=== PATIENT | female | born 1945 | race Caucasian/White ===

== ENCOUNTER 2017-01-18 07:07 | Day surgery (SDC) | payer MEDICARE, OTHER ==
[2017-01-17 13:32] LABS: BASOPHILS 0.4 %; BASOPHILS ABSOLUTE 0.03 10/3/uL (0.0-0.16); EOSINOPHILS 2.3 %; EOSINOPHILS ABSOLUTE 0.18 10/3/uL (0.0-0.53); HEMATOCRIT 39.6 % (36.0-48.0); HEMOGLOBIN 13.4 g/dL (12.0-16.0); IMMATURE GRANULOCYTES 0.4 %; IMMATURE GRANULOCYTES ABSOLUTE 0.03 10/3/uL (0.0-0.11); LYMPHOCYTES 16.8 %; LYMPHOCYTES ABSOLUTE 1.33 10/3/uL (0.67-4.30); MEAN CORPUS HGB CONC 33.8 g/dL (32.0-36.0); MEAN CORPUSCULAR HEMOGLOB 33.2 pg (26.0-34.0); MEAN PLATELET VOLUME 9.6 fL (9.2-13.0); MONOCYTES 7.4 %; MONOCYTES ABSOLUTE 0.59 10/3/uL (0.21-1.20); NEUTROPHILS 72.7 %; NEUTROPHILS ABSOLUTE 5.76 10/3/uL (2.02-8.40); PLATELET COUNT 354 10/3/uL (150-400); RBC DISTRIBUTION WIDTH 12.7 % (12.0-16.0); RED CELL COUNT 4.04 10/6/uL (4.0-5.6); WHITE BLOOD CELLS 7.9 10/3/uL (4.5-10.5)
[2017-01-17 13:33] LABS: MANUAL DIFF NO %
[2017-01-17 14:58] LABS: A/G RATIO 1.7 (0.7-1.9); ALBUMIN 4.2 G/DL (3.5-5.0); ALKALINE PHOSPHATASE 72 U/L (45-117); BUN (BLOOD UREA NITROGEN) 21 MG/DL (6-23); CALCIUM, SERUM 9.2 MG/DL (8.5-10.4); CHLORIDE, SERUM 102 MMOL/L (96-112); CO2 (CARBON DIOXIDE) 25 MMOL/L (24-34); CREATININE 0.97 MG/DL (0.55-1.02); GFR AFRICAN AMERICAN 68 ML/MIN (>=60); GFR NON AFRICAN AMERICAN 58 ML/MIN (>=60); GLOBULIN 2.5 G/DL (2.5-4.1); GLUCOSE, SERUM 74 MG/DL (60-99); POTASSIUM, SERUM 4.6 MMOL/L (3.5-5.3); SGOT(AST) 23 U/L (5-40); SGPT(ALT) 27 U/L (5-65); SODIUM, SERUM 138 MMOL/L (135-148); TOTAL BILIRUBIN 0.7 MG/DL (0-1.2); TOTAL PROTEIN 6.7 G/DL (6.0-8.5)
--- NOTE | ~2017-01-18 | OP ---
Record Of Operation [facility] [address] [place]. [address] NAME: RAQUEL THAKUR : 43 STATUS : [facility]#: [id number] AGE: 71 ADM/REG DATE : 01/18/17 MR#: [id number] REPORT SERV DATE: 01/19/17 DICTATED BY: RALPH MENDIETA III DATE: 01/18/17 REPORT STATUS : Draft TRANSCRIBED BY: MODL DATE: 01/18/17 DATE OF PROCEDURE: 01/18/2017 PREOPERATIVE DIAGNOSIS: Invasive lobular cancer of the left breast. POSTOPERATIVE DIAGNOSIS: Invasive lobular cancer of the left breast. PROCEDURE: Left breast lumpectomy with ultrasound wire localization and sentinel lymph node biopsy. SURGEON: Ralph Mendieta M.D. ANESTHESIA: General with intubation. COMPLICATIONS: None. ESTIMATED BLOOD LOSS: 5 mL. SPECIMENS: Lumpectomy specimen from left breast and sentinel lymph node from left axilla. DRAINS: None. LAP AND SPONGE COUNT: Correct x3. BRIEF HISTORY: This 71-year-old female presented with biopsy proven invasive lobular cancer located at the 3 o'clock position in the left breast. The patient was offered the option of breast conservative therapy versus mastectomy. The pros and cons, advantages, and disadvantages of each were discussed with the patient. The patient elected to have breast conservative therapy. Therefore, felt that a left breast lumpectomy with sentinel lymph node biopsy and possible axillary dissection was indicated. This procedure, the risks, benefits, and alternatives, including, but not limited to the risk for bleeding, infection, pain, swelling, scarring or deformity to the breast, seroma formation, hematoma formation, distortion of the breast, change in size of the breast, nerve injury, chronic paresthesia or pain in the arm, shoulder or axilla, nerve injury with muscle weakness or paralysis in muscles of her back or shoulder, chronic lymphedema of the arm, possible need to return the operating room for wider excision, completion of mastectomy, or completion of axillary dissection if there were discrepancies between the frozen section and final pathology report and unforeseen complications including deep venous thrombosis, pulmonary embolus, myocardial infarction, stroke, pneumonia, and , were explained the patient prior to surgery. She understood the risks and agreed to surgery as planned. DESCRIPTION OF PROCEDURE: After being properly identified and after discussing risks of surgery with her again in the preoperative area and after lymphoscintigraphy had been performed per Radiology and after ultrasound wire localization had been performed per Radiology, the patient was taken to the operating room and placed in the supine position on operating room table. General anesthesia was administered and she was intubated without Record Of Operation [facility] [id number] [facility]. [address] NAME: RAQUEL THAKUR : 43 STATUS : [facility]#: [id number] AGE: 71 ADM/REG DATE : 01/18/17 MR#: [id number] REPORT SERV DATE: 01/19/17 DICTATED BY: RALPH MENDIETA III DATE: 01/18/17 REPORT STATUS : Draft TRANSCRIBED BY: SIMBA DATE: 01/18/17 difficulty. The left breast, arm, and axilla were prepped and draped sterilely in the usual fashion, taking care not to dislodge the guidewire from the skin. After an appropriate "time-out" per discharge standards, a curvilinear incision was made at the exit site of the guidewire from the skin at the 3 o'clock position laterally in the left breast. The incision was continued through the subcutaneous tissue. Using sharp dissection, a generous segmentectomy specimen was taken, down to the major pectoral fascia. This dissection was done so as to leave the guidewire in the center of the specimen. This entire block of tissue was thus removed and oriented with sutures and sent for specimen and imaging. It was interpreted by Radiology as containing the tumor. The specimen was then sent to pathology interpreted containing clear margins with the tumor. The wound was irrigated copiously with saline and hemostasis was assured. The subcutaneous tissue was closed with running 3-0 Vicryl suture. The skin was closed with running subcuticular 4-0 Monocryl stitch. We then turned our attention to the left axilla. A small transverse incision was made in the left axilla. Using the navigator probe, we identified a cluster of small sentinel lymph nodes. These were completely resected. The ex-vivo 10- second count of this lymph node was around 1400. The background count after removal of these lymph nodes in the axilla was 0/10 seconds. The sentinel lymph nodes were sent to pathology and interpreted as being benign with no evidence for malignancy. The area was irrigated copiously with saline. Hemostasis was assured. The subcutaneous tissue was closed with a running 3-0 Vicryl suture. The skin was closed with running subcuticular 4-0 Monocryl stitch. Both incisions were injected with 0.5% Marcaine. Dressings were applied, anesthesia was reversed, and the patient had recovery room in stable condition. She tolerated the procedure well. Her family was informed the results of surgery. The patient was discharged when stable and comfortable. Her family was advised that she should keep the wounds clean and dry for 48 hours, that she should not drive for two to three days after surgery or while using narcotics and that she should resume her usual medications. She was asked to return in two weeks for followup or sooner if any fever, chills, wound drainage, or other problems prior to that time. She was given a prescription for Percocet 7.5 one t.i.d., #12, as needed for pain, which she was advised not to use while driving. RHJ/MODL Ralph Mendieta III, M.D. / [id number] CC: Mazin Matthews III, M.D.
--- NOTE | ~2017-01-18 | PREOPHP ---
PreOp History and Physical [facility] [address] [facility] [place]. [address] NAME: RAQUEL THAKUR : 43 STATUS : PRE [facility] PAT#: [id number] AGE: 71 ADM/REG DATE : MR#: [id number] REPORT SERV DATE: 01/17/17 DICTATED BY: RALPH MENDIETA III DATE: 01/10/17 REPORT STATUS : Draft TRANSCRIBED BY: MODL DATE: 01/10/17 HISTORY OF PRESENT ILLNESS: This 71-year-old female comes to the operating room for left breast lumpectomy with sentinel lymph node biopsy and possible axillary dissection. The patient recently had a routine mammogram. This mammogram showed a mass of concern in the left breast located at the 3 o'clock position. An ultrasound-directed biopsy was performed, confirming this to be a focal invasive lobular carcinoma. The patient has been offered the option of mastectomy versus lumpectomy for treatment of this malignancy. The pros and cons, advantages, and disadvantages of each were discussed. The patient has elected to have breast conservative therapy. The patient comes to the operating room now for left breast lumpectomy with wire localization, sentinel lymph node biopsy, and possible axillary dissection. PAST MEDICAL HISTORY: 1. Hypertension. 2. History of trans ischemic attack in the past. MEDICATIONS: Alendronate , potassium, valsartan, Aldactone, amlodipine, calcium, and aspirin. FAMILY HISTORY: Positive for diabetes. SOCIAL HISTORY: No history of tobacco or alcohol use. ALLERGIES: NONE. REVIEW OF SYSTEMS: The patient's 14-point review of systems is otherwise unremarkable. PHYSICAL EXAMINATION: GENERAL: This is an obese female, in no acute distress. She is alert and oriented x3. VITAL SIGNS: Blood pressure 131/74, pulse 63, and temperature 97.6. HEENT: Unremarkable. Cranial sutures 2 through 12 are normal. NECK: Unremarkable. No adenopathy. LUNGS: Clear. CARDIAC: Normal. BREASTS: The right breast is unremarkable. No palpable masses or nodules. The right nipple is normal. No discharge. The right axilla is normal with no adenopathy. The left breast is unremarkable with no palpable masses or nodules. The left axilla is normal with no adenopathy. The left nipple is normal. No discharge. EXTREMITIES: Normal. LABORATORY DATA: Recent bilateral mammogram and ultrasound of the left breast show a 2.6 cm mass in the left breast at 3 o'clock position BI-RADS 4, suspicious for malignancy. Ultrasound-directed core needle biopsy was performed confirming this to be a focal invasive lobular carcinoma. PreOp History and Physical [address] [address] NAME: RAQUEL THAKUR : 43 STATUS : PRE [facility]#: [id number] AGE: 71 ADM/REG DATE : MR#: [id number] REPORT SERV DATE: 01/17/17 DICTATED BY: RALPH MENDIETA III DATE: 01/10/17 REPORT STATUS : Draft TRANSCRIBED BY: SIMBA DATE: 01/10/17 ASSESSMENT: 1. A 71-year-old female with biopsy proven lobular cancer of the left breast. 2. Hypertension. 3. Trans ischemic attack in the past. 4. Obesity. PLAN: The patient comes to the operating room now for left breast lumpectomy with ultrasound wire localization, sentinel lymph node biopsy, and possible axillary dissection if her sentinel lymph node is found to contain malignancy. This procedure, the risks, benefits, and alternatives, including not limited to the risk for bleeding, infection, pain, swelling, scarring, deformity to the breast, seroma formation, hematoma formation, distortion of breast, change in size of the breast, cosmetic deformity, nerve injury, chronic paresthesia, or pain in the arm, shoulder, or axilla, nerve injury, muscle weakness, or paralysis in muscles of her back or shoulder, chronic lymphedema of the arm, possible need to return for wider excision or completion of mastectomy, or completion axillary dissection, if there is discrepancy between the frozen section and final pathology report, and unforeseen complications including deep venous thrombosis, pulmonary embolus, myocardial infarction, stroke, pneumonia, and , have been explained the patient prior to surgery. Her questions were answered. She understands the risks and agrees to surgery as planned. CRIS/SIMBA Ralph Mendieta III, M.D. / [id number]
[~2017-01-18 07:07] MED LIST: ASA5GR PO; CALCIUM CITRATE PO; DIOV160 PO; FOSAMAX70 MG PO; KLOR-CON M2020 MEQ PO; NORV5 PO; SPIRO25 PO; [UNRECOGNIZED DRUG - OTHER] PO
== END 2017-01-18 16:22 | disposition home or self-care (01) ==
LOC: SDC 07:07
PROVIDERS: Surgery
PROC: 07B60ZZ Excision of Left Axillary Lymphatic, Open Approach (ICD-10-PCS; 2017-01-18)
PROC: 0HBU0ZZ Excision of Left Breast, Open Approach (ICD-10-PCS; principal; 2017-01-18 12:30)
DX: C50.812 Malignant neoplasm of overlapping sites of left female breast (principal); I10 Essential (primary) hypertension; Z88.1 Allergy status to other antibiotic agents; Z86.73 Personal history of transient ischemic attack (TIA), and cerebral infarction without residual deficits; Z79.82 Long term (current) use of aspirin; Z79.899 Other long term (current) drug therapy
CPT/HCPCS: 36415; 71020; 78195; 80053; 85025; 88307; 88331; 88341; 88342; 88360; 93005; A9541; J0690; J2250; J2405; J3010